=== PATIENT | female | born 1965 | race African-American/Black ===

== ENCOUNTER 2016-10-24 00:58 | Inpatient (IN) | payer OTHER ==
--- NOTE | ~2016-10-24 | PN ---
Unit #: [id number] #: [id number] Patient: DONNA SMITH [id number] [facility] [address] [place] [address] [id number] I MR#: [id number] NAME: DONNA SMITH ROOM: P258 Age: 51 Sex: F Admission Date: 10/24/2016 : 1965 Attending Physician: Tucker Craft M.D. Admitting Physician: Tucker Craft M.D. Primary Care Physician: Primary Care Physician Cesilia YUSUF NOTES DATE 11/01/2016 DISCUSSION Ms. Smith is a 51-year-old female who was seen today and chart was reviewed and case was discussed with the staff. She has been anxious, withdrawn and rather seclusive to herself. Meanwhile, she has been cooperative with treatment recommendations and has been taking the medications and tolerating them fairly well with no reported side effects. MENTAL STATUS EXAMINATION Middle-aged female who was casually dressed with fair personal hygiene and appears to be in no acute distress or discomfort. She was awake and alert with impaired attention and concentration. Her mood was anxious with congruent affect. She denies any suicidal or homicidal ideations and also denies any auditory or visual hallucinations. Her insight and judgement remains slightly impaired. TREATMENT PLAN Will continue on current medications and treatment protocol. Will monitor her response and make further adjustments as needed. Dictated by... Rachel Flynn/patience TD: 11/01/2016 22:29 JOB #: [id number] JOAQUÍN YUSUF NOTES X Tucker Craft MD PROGRESS NOTE
--- NOTE | ~2016-10-24 | PN ---
Unit #: [id number] #: [id number] Patient: DONNA SMITH [id number] [facility] [address] [place] [address] [id number] MR#: [id number] NAME: DONNA SMITH ROOM: P256 Age: 51 Sex: F Admission Date: 10/24/2016 : 1965 Attending Physician: Tucker Craft M.D. Admitting Physician: Tucker Craft M.D. Primary Care Physician: Primary Care Physician Cesilia YUSUF NOTES DATE October 30, 2016 DISCUSSION Ms. Smith is a 51-year-old female, who was seen today and chart was reviewed and the case was discussed with the staff. She reports not feeling much better and complains of persistent anxiety/depression and feelings of hopelessness. Meanwhile, she has been taking the medications and tolerating them fairly well with no reported side effects. MENTAL STATUS EXAMINATION Middle-aged female, who was casually dressed with fair personal hygiene and appears to be in no acute distress or discomfort. She was awake and alert with impaired attention and concentration. Her mood is anxious and depressed with a congruent affect. The patient reports having suicidal ideation and denies homicidal ideations, and also denies any auditory or visual hallucinations. Her insight and judgment remain slightly impaired. TREATMENT PLAN 1. We will continue her on her current medications and treatment protocol, and will monitor her response, and make further adjustments as needed. 2. We will continue to followup. Dictated by... Rachel Flynn/corinna TD: 10/31/2016 09:58 JOB #: [id number] Unit #: [id number] #: [id number] Patient: DONNA SMITH PEAAUSTYN PROGRESS NOTES X Tucker Craft MD PROGRESS NOTE
--- NOTE | ~2016-10-24 | PN ---
Unit #: [id number] #: [id number] Patient: DONNA SMITH [id number] [facility] [address] [place] [address] [id number] MR#: [id number] NAME: DONNA SMITH ROOM: P256 Age: 51 Sex: F Admission Date: 10/24/2016 : 1965 Attending Physician: Tucker Craft M.D. Admitting Physician: Tucker Craft M.D. Primary Care Physician: Primary Care Physician Cesilia YUSUF NOTES DATE OF SERVICE: 10/25/2016 SUBJECTIVE Ms. Smith is a 51-year-old female, who was seen today and chart was reviewed and the case was discussed with the staff. She has been anxious, withdrawn, depressed, and seclusive to herself and reports not feeling good and has been reporting persistent depression and anxiety. Meanwhile, she has been compliant with the treatment recommendations and has been taking the medications and tolerating them fairly well. MENTAL STATUS EXAMINATION Middle-aged female, who was casually dressed with a fair personal hygiene, appears to be in no acute distress or discomfort. She was awake and alert with impaired attention and concentration. Her mood was anxious and depressed with a congruent affect. Her speech was slow and goal directed. She denies any suicidal or homicidal ideations. Her insight and judgment remain slightly impaired. TREATMENT PLAN 1. We will continue her on her current medications and treatment protocol. We will monitor her response to the medications and make further adjustments as needed. 2. We will continue to follow up. Dictated by... Rachel Flynn/seamus TD: 10/26/2016 10:26 JOB #: [id number] JOAQUÍN YUSUF NOTES X Tucker Craft MD PROGRESS NOTE
--- NOTE | ~2016-10-24 | PN ---
Unit #: [id number] #: [id number] Patient: DONNA SMITH [id number] [facility] [address] [place] [address] [id number] I MR#: [id number] NAME: DONNA SMITH ROOM: P258 Age: 51 Sex: F Admission Date: 10/24/2016 : 1965 Attending Physician: Tucker Craft M.D. Admitting Physician: Tucker Craft M.D. Primary Care Physician: Primary Care Physician Cesilia YUSUF NOTES DATE OF SERVICE: 11/02/2016 SUBJECTIVE Ms. Smith is a 51-year-old female who was seen today and chart was reviewed, and case was discussed with the staff. She has been anxious, withdrawn, and rather seclusive to herself. Meanwhile, she has been cooperative with treatment recommendations and has been showing improvement in her mood and functioning. MENTAL STATUS EXAMINATION Middle-aged female who was casually dressed with fair personal hygiene, appears to be in no acute distress or discomfort. She was awake and alert on interaction with intact orientation. Her mood was anxious with a congruent affect. She denies any suicidal or homicidal ideations, and also denies any auditory or visual hallucinations. Her insight and judgment remain slightly impaired. TREATMENT PLAN We will continue on her current medications and treatment protocol. We will monitor her response to medications and make further adjustments as needed. Dictated by... Rachel Flynn/robertl TD: 11/03/2016 03:24 JOB #: [id number] JOAQUÍN PROGRESS NOTES X Tucker Craft MD PROGRESS NOTE
--- NOTE | ~2016-10-24 | HP ---
Unit #: [id number] #: [id number] Patient: ELIN SMITH [id number] [place] [address] [id number] I MR#: [id number] NAME: ELIN SMITH ROOM: P181 Age: 51 Sex: F Admission Date: 10/24/2016 : 1965 Attending Physician: Tucker Craft M.D. Admitting Physician: Tucker Craft M.D. Primary Care Physician: Primary Care Physician No HISTORY AND PHYSICAL HISTORY OF PRESENT ILLNESS Elin is a 51 year old admitted to [facility] because of her continued substance abuse. PAST MEDICAL HISTORY 1. Long history of polysubstance abuse to include cocaine. 2. Obesity. 3. Chronic pain. PAST SURGICAL HISTORY 1. Fractured leg with ORIF 2. Inguinal hernia repair. ALLERGIES No known drug allergies. SOCIAL HISTORY Smokes less than one pack per day. Denies alcohol. Admits to a history of illicit drug use to include cocaine. FAMILY HISTORY Medically noncontributory. REVIEW OF SYSTEMS CONSTITUTIONAL: No fever or chills. HEENT: Denies any sore throat, ear pain or runny nose. CARDIOVASCULAR: Denies chest pain, irregular heart rhythm or palpitations. CHEST: Denies shortness of breath or cough. No hemoptysis. GASTROINTESTINAL: Denies nausea, vomiting, diarrhea or chronic constipation. ENDOCRINE: Denies history of increased thirst or urination. No recent significant weight loss or gain. GENITOURINARY: Denies dysuria, frequency, or hematuria. SKIN: Denies any rashes. HEMATOLOGIC: Denies history of increased bleeding or bruising. MUSCULOSKELETAL: Denies any hot, swollen joints. No generalized muscle pain. NEUROLOGIC: Denies problems with vision or speech. No frequent, severe headaches. No numbness, tingling or weakness in any extremities. Denies loss of bladder or bowel control. CURRENT MEDICATIONS Unit #: [id number] #: [id number] Patient: ELIN SMITH No orders received at the time of this dictation. PHYSICAL EXAMINATION GENERAL: Alert, well-nourished, in no apparent distress. VITAL SIGNS: Blood pressure 120/70, heart rate 80, respirations 16, temperature 98.6. SKIN: Warm and dry without rash or lesion. HEENT: Normocephalic. TMs not viewed. Oral and nasal passages clear. Conjunctivae clear. Pupils equal, round and reactive to light and accommodation. Extraocular movements intact. NECK: Supple without lymphadenopathy or thyromegaly. HEART: Rate and rhythm is regular with a 2/6 systolic murmur. LUNGS: Clear. ABDOMEN: Soft, nontender. : Not done. EXTREMITIES: No evidence of cyanosis, clubbing or edema. Moves all extremities without focal deficit. NEUROLOGICAL: Grossly within normal limits. Cranial Nerves: II: Visual irizarry are intact. III, IV AND : Extraocular movements are intact. Pupils are equal, round and reactive to light. V: Facial sensation is grossly normal. VII: Facial movements and expression are normal. VIII: Auditory acuity grossly intact. IX, X: Uvula is midline. Phonation is normal. XI: Patient shrugs shoulders and turns head normally. XII: Tongue protrudes in the midline. Sensory and Motor Function: Sensory and motor sensation is grossly normal. Motor: moves all extremities well. Coordination: Gait is normal. Deep Tendon Reflexes: Intact. IMPRESSION Psychiatric admission RECOMMENDATIONS PSYCHIATRIC: Per psychiatrist. MEDICAL: I see no contraindications to participating in facility's activities. MEDICAL PROGNOSIS Good. MEDICAL CONDITION Stable. Dictated by... Chris BarrazaANaya-Tani. for Rachel Moore/florencia TD: 10/25/2016 03:05 JOB #: [id number] Unit #: [id number] #: [id number] Patient: ELIN SMITH HISTORY AND PHYSICAL X Trang Romero X HISTORY AND PHYSICAL
--- NOTE | ~2016-10-24 | PN ---
Unit #: [id number] #: [id number] Patient: DONNA SMITH [id number] [facility] [address] [place] [address] [id number] MR#: [id number] NAME: DONNA SMITH ROOM: P256 Age: 51 Sex: F Admission Date: 10/24/2016 : 1965 Attending Physician: Tucker Crfat M.D. Admitting Physician: Tucker Craft M.D. Primary Care Physician: Primary Care Physician Cesilia YUSUF NOTES DATE OF SERVICE: 10/28/2016 SUBJECTIVE Ms. Smith is a 51-year-old female, who was seen today and chart was reviewed and the case was discussed with the staff. She has been anxious, withdrawn, depressed, and rather seclusive to herself and reports not feeling much better and does not feel that her medications are effectively controlling her depressive symptoms. Meanwhile, she has been taking the medications and tolerating them fairly well with no reported side effects. MENTAL STATUS EXAMINATION Middle-aged female, who was casually dressed with fair personal hygiene, appears to be in no acute distress or discomfort. She was awake and alert with intact orientation. Her mood anxious with a congruent affect. She denies any suicidal or homicidal ideation. Her insight and judgment remain slightly impaired. TREATMENT PLAN 1. We will continue her on her current medications and treatment protocol and we will monitor her response to the medications and make further adjustments as needed. 2. We will continue to follow up. Dictated by... Rachel Flynn/seamus TD: 10/28/2016 13:13 JOB #: [id number] JOAQUÍN YUSUF NOTES X Tucker Craft MD PROGRESS NOTE
--- NOTE | ~2016-10-24 | DS ---
Unit #: [id number] #: [id number] Patient: [facility]ITH [id number] [facility] [place] [address] [id number] MR#: [id number] NAME: DONNA SMITH ROOM: P258 Age: 51 Sex: F Admission Date: 10/24/2016 : 1965 Discharge Date: 11/03/2016 Attending Physician: Tucker Craft M.D. Primary Care Physician: Primary Care Physician No DISCHARGE SUMMARY IDENTIFYING DATA Ms. Smith is a 51-year-old female, who is a resident of [place], [place], and was self-referred to the hospital. DISCHARGE DIAGNOSES Psychiatric: Major depressive disorder, recurrent, moderate, without psychotic features. Medical: None. Stressors: Moderate psychosocial stressors. HISTORY OF PRESENT ILLNESS Please see initial psychiatric evaluation for details. PAST PSYCHIATRIC HISTORY Please see initial psychiatric evaluation for details. PAST MEDICAL HISTORY Please see initial psychiatric evaluation for details. HOSPITAL COURSE The patient was admitted to the adult psychiatric unit at [facility] and was oriented to the hospital environment. Routine p.r.n. medications were initiated, and she was started back on her home medications and medications were adjusted. The patient had a rather complicated course of illness with persistent depression and anxiety and was not showing therapeutic response to most of the medications and as such, medications were adjusted quite regularly, and once she got on a combination of Seroquel and Neurontin, she was seen to be doing much better and was calm and cooperative, sleeping and eating better, and was showing improvement in her anxiety and was willing to continue treatment on an outpatient basis, and as such, it was decided that she will be discharged home and will continue treatment on an outpatient basis. DISCHARGE MEDICATIONS Seroquel 100 mg at bedtime for depression, Celexa 40 mg in the morning for depression, and Neurontin 300 mg t.i.d. for anxiety. DISCHARGE CONDITION Stable. PROGNOSIS Fair. Unit #: [id number] #: [id number] Patient: DONNA SMITH Dictated by... Tucker Craft M.D. IAA/modl TD: 11/03/2016 20:37 JOB #: [id number] DISCHARGE SUMMARY X Tucker Craft MD DISCHARGE SUMMARY
--- NOTE | ~2016-10-24 | PA ---
Unit #: [id number] #: [id number] [facility]: [facility] [id number] [facility] [place] [address] [id number] I MR#: [id number] NAME: DONNA SMITH ROOM: P181 Age: 51 Sex: F Admission Date: 10/24/2016 : 1965 Date of Assessment: 10/24/2016 Attending Physician: Tucker Craft M.D. Admitting Physician: Tucker Craft M.D. Primary Care Physician: Primary Care Physician No PSYCHIATRIC ASSESSMENT DATE OF SERVICE 10/24/2016. IDENTIFYING DATA Ms. Smith is a 51-year-old female, who is a resident of [place], [place] and was self-referred to the hospital on a voluntary basis. CHIEF COMPLAINT "I have been really depressed and I'm not eating." HISTORY OF PRESENT ILLNESS This is a 51-year-old female, who was self-referred to the hospital. Upon presentation, reports increasing depression and that she has not been eating and "I just feel like I'm going to have a nervous breakdown, stuff going on at work. I have been off my medicine for a while and I want to kill myself. I'm hearing voices. It has gotten really bad the last month." The patient reports auditory hallucinations, stating "the last few days, it has gotten worse." The patient reports voices are command in nature and has been telling her to hurt herself. The patient reports that she was working at [employer] and stated "I took off 2 weeks for medical reasons to get my feet done." She reports that she has not been able to work since then and has been having increasing depression, anxiety with feelings of hopelessness and helplessness, and suicidal ideations and command auditory hallucinations. SUBSTANCE ABUSE HISTORY The patient denies any alcohol or drug abuse. PAST PSYCHIATRIC HISTORY The patient has had history of inpatient psychiatric hospitalization at [facility] and has been diagnosed and treated for mood disorder, but apparently has been off her medications and has been decompensating. PAST MEDICAL HISTORY No acute or chronic medical illnesses. PERSONAL AND SOCIAL HISTORY A 51-year-old female, who reports that she is currently employed and lives at home with her boyfriend and has fairly decent social support system. Unit #: [id number] #: [id number] Patient: DONNA SMITH MENTAL STATUS EXAMINATION Middle-aged female who was casually dressed with fair personal hygiene, appears to be in no acute distress or discomfort. She was awake and alert on interaction with intact orientation to time, place, and person. Her mood was anxious and depressed with a congruent affect. Her speech was slow and goal directed. She reports having suicidal ideations and auditory hallucinations. Her insight and judgment remain significantly impaired. DIAGNOSTIC IMPRESSION Psychiatric: Major depressive disorder, recurrent, moderate, with psychosis. Medical: None. Stressors: Moderate psychosocial stressors. TREATMENT PLAN 1. The patient has presented with history of substance abuse and mood disorder, and has been decompensating and will need inpatient hospitalization for safety and stabilization. We will start her back on her home medications. We will adjust the medications and monitor response. 2. Supportive therapy was provided to the patient. 3. Safe, structured, and nourishing environment will be reported. ESTIMATED LENGTH OF STAY 5 to 7 days. ABILITY TO HELP SELF Limited. WILLINGNESS TO HELP SELF The patient appears to be willing to help self. STRENGTHS 1. Communicative. 2. Cooperative. PROBLEMS 1. Chronic dysphoric symptoms. 2. Chronic chemical dependency. 3. Poor social support system. DISCHARGE CRITERIA This will be contingent upon the patient's ability to show resolution of her depression and psychosis and her ability to stay safe to herself, particularly after discharge from the hospital. Dictated by... Tucker Craft M.D. MARCO A/seamus TD: 10/24/2016 06:40 JOB #: [id number] Unit #: [id number] #: [id number] Patient: DONNA SMITH PSYCHIATRIC ASSESSMENT X Tucker Craft MD PSYCHIATRIC ASSESSMENT
--- NOTE | ~2016-10-24 | PN ---
Unit #: [id number] #: [id number] Patient: DONNA SMITH [id number] [facility] [address] [place] [address] [id number] MR#: [id number] NAME: DONNA SMITH ROOM: P256 Age: 51 Sex: F Admission Date: 10/24/2016 : 1965 Attending Physician: Tucker Craft M.D. Admitting Physician: Tucker Craft M.D. Primary Care Physician: Primary Care Physician Cesilia YUSUF NOTES DATE OF SERVICE: 10/26/2016 SUBJECTIVE Ms. Smith is a 51-year-old female who was seen today and chart was reviewed, and case was discussed with the staff. She has been anxious, withdrawn, and rather seclusive to herself. Meanwhile, she has been cooperative with treatment recommendations and has been taking the medications and tolerating them fairly well. MENTAL STATUS EXAMINATION Middle-aged female who was casually dressed with a fair personal hygiene, appears to be in no acute distress or discomfort. She was awake and alert with impaired attention and concentration. Her mood was anxious with a congruent affect. She denies any suicidal or homicidal ideations, and also denies any auditory or visual hallucinations. Her insight and judgment remain slightly impaired. TREATMENT PLAN 1. We will continue her on current medications and treatment protocol. We will monitor her response and make further adjustments as needed. 2. We will continue to follow up. Dictated by... Rachel Flynn/seamus TD: 10/27/2016 01:48 JOB #: [id number] JOAQUÍN PROGRESS NOTES X Tucker Craft MD PROGRESS NOTE
--- NOTE | ~2016-10-24 | PN ---
Unit #: [id number] #: [id number] Patient: DONNA SMITH [id number] [facility] [address] [place] [address] [id number] MR#: [id number] NAME: DONNA SMITH ROOM: P256 Age: 51 Sex: F Admission Date: 10/24/2016 : 1965 Attending Physician: Tucker Craft M.D. Admitting Physician: Tucker Craft M.D. Primary Care Physician: Primary Care Physician Cesilia YUSUF NOTES DATE OF SERVICE: 10/27/2016 SUBJECTIVE Ms. Smith is a 51-year-old female, who was seen today and chart was reviewed and the case was discussed with the staff. She has been anxious, withdrawn, and rather seclusive to herself and has been reporting persistent depressive symptoms with feelings of hopeless and helplessness. Meanwhile, she has been taking the medications and tolerating them fairly well with no reported side effects. MENTAL STATUS EXAMINATION Middle-aged female, who was casually dressed with fair personal hygiene, appears to be in no acute distress or discomfort. She was awake and alert with intact orientation. Her mood anxious and depressed with a congruent affect. She reports having suicidal ideation, but denies any homicidal ideations. Her insight and judgment remain slightly impaired. TREATMENT PLAN 1. We will continue her on her current medications and treatment protocol. We will monitor her response to the medications and make further adjustments as needed. 2. We will continue to follow up. Dictated by... Rachel Flynn/seamus TD: 10/27/2016 16:15 JOB #: [id number] JOAQUÍN YUSUF NOTES X Tucker Craft MD PROGRESS NOTE
--- NOTE | ~2016-10-24 | PN ---
Unit #: [id number] #: [id number] Patient: DONNA SMITH [id number] [facility] [address] [place] [address] [id number] MR#: [id number] NAME: DONNA SMITH ROOM: P256 Age: 51 Sex: F Admission Date: 10/24/2016 : 1965 Attending Physician: Tucker Craft M.D. Admitting Physician: Tucker Craft M.D. Primary Care Physician: Primary Care Physician Cesilia YUSUF NOTES DATE OF SERVICE: 10/29/2016 SUBJECTIVE Ms. Smith is a 51-year-old female who was seen today and chart was reviewed and case was discussed with the staff. She remains anxious, withdrawn, depressed, and seclusive to herself and sleeps on her bed most of the time, but hardly gets up and does anything needed. She appeared to be participating in treatment-related activities. Meanwhile, she has been taking the medications which were adjusted yesterday after she complained lack of response from medications. MENTAL STATUS EXAMINATION Middle-aged female who was casually dressed with fair personal hygiene, appears to be in no acute distress or discomfort. She was awake and alert on interaction with intact orientation. Her mood was anxious with a congruent affect. She reports having suicidal ideations, but denies any homicidal ideations. Her insight and judgment remain slightly impaired. TREATMENT PLAN 1. We will continue her on her current medications and treatment protocol. We will monitor her response and make further adjustments as needed. 2. We will continue to follow up. Dictated by... Rachel Flynn/seamus TD: 10/30/2016 13:40 JOB #: [id number] Unit #: [id number] #: [id number] Patient: DONNA SMITH [facility] PROGRESS NOTES X Tucker Craft MD PROGRESS NOTE
--- NOTE | ~2016-10-24 | PN ---
Unit #: [id number] #: [id number] Patient: DONNA SMITH [id number] [facility] [address] [place] [address] [id number] MR#: [id number] NAME: DONNA SMITH ROOM: P258 Age: 51 Sex: F Admission Date: 10/24/2016 : 1965 Attending Physician: Tucker Craft M.D. Admitting Physician: Tucker Craft M.D. Primary Care Physician: Primary Care Physician Cesilia YUSUF NOTES DATE OF SERVICE: 10/31/2016 SUBJECTIVE Ms. Smith is a 51-year-old female, who was seen today and chart was reviewed and the case was discussed with the staff. She reports persistent depression and anxiety, irritability, restlessness, mood swings, impulsivity, poor sleep at night, and debilitating anxiety. She reports she has been taking her medications, she does not feel the medications are effectively controlling her symptoms. MENTAL STATUS EXAMINATION Middle-aged female, who was casually dressed with a fair personal hygiene, appears to be in no acute distress or discomfort. She was awake and alert on interaction with intact orientation. Her mood was anxious and depressed with a congruent affect. Her speech was slow and goal directed. She denies any current suicidal or homicidal ideations. Her insight and judgment remain significantly impaired. TREATMENT PLAN 1. We will continue her on her current medications and treatment protocol and we will adjust the medications. We will add Neurontin and Seroquel to help alleviate her symptoms. 2. We will continue to follow up. Dictated by... Rachel Flynn/seamus TD: 11/01/2016 15:33 JOB #: [id number] JOAQUÍN YUSUF NOTES X Tucker Craft MD PROGRESS NOTE
[2016-10-24 09:44] LABS: BASOPHIL# 0.1 X10e3 (0-0.3); BASOPHIL% 0.9 % (0-2.5); EOSINOPHIL# 0.2 X10e3 (0-0.7); EOSINOPHIL% 3.6 % (0.0-7.0); HEMOGLOBIN 10.8 gm/dL (12.0-16.0); LYMPHOCYTE# 2.3 X10e3 (1.0-3.5); LYMPHOCYTE% 33.9 % (17.0-45.0); MEAN CELL VOLUME 81.5 FL (83-96); MEAN CORPUSCULAR HEMOGLOBIN 25.8 PG (28-34); MEAN CORPUSCULAR HGB CONC 31.7 g/dL (30-36); MEAN PLATELET VOLUME 8.9 FL (6.5-11.5); MONOCYTE# 0.6 X10e3 (0-1.0); MONOCYTE% 8.3 % (3.0-12.0); NEUTROPHIL# 3.7 X10e3 (1.5-7.1); NEUTROPHIL% 53.3 % (40-75); PLATELET COUNT 241 X10e3 (140-420); RED BLOOD COUNT 4.17 X10e (3.90-5.30); RED CELL DISTRIBUTION WIDTH 16.5 % (11.0-15.5); WHITE BLOOD COUNT 6.9 X10e3 (4.0-10.5)
[2016-10-24 09:45] LABS: DIFF IND NO
[2016-10-24 09:53] LABS: THYROID STIMULATING HORMONE 0.93 uIU/ml (0.34-5.60)
[2016-10-24 09:54] LABS: URINE APPEARANCE CLOUDY; URINE BLOOD NEG (NEG); URINE COLOR YELLOW; URINE GLUCOSE NORM (NORM); URINE KETONE NEG (NEG); URINE LEUKOCYTE ESTERASE NEG (NEG); URINE NITRATE NEG (NEG); URINE PROTEIN 1+ (NEG); URINE SPECIFIC GRAVITY 1.025 (1.003-1.035); URINE UROBILINOGEN NORM (NORM)
[2016-10-24 10:00] LABS: FREE THYROXIN (T4) 0.87 ng/dL (0.58-1.64)
[2016-10-24 10:01] LABS: URINE BILIRUBIN NEG (NEG)
[2016-10-24 10:07] LABS: ALBUMIN SERUM 3.9 g/dL (3.5-5.0); ALKALINE PHOSPHATASE 61 U/L (32-92); ALT (SGPT) 12 U/L (10-40); AST (SGOT) 21 U/L (10-42); BILIRUBIN,TOTAL 0.5 mg/dL (0.2-2.0); BLOOD UREA NITROGEN 20 mg/dL (9-23); BUN/CREATININE RATIO 18.18; CALCIUM SERUM 9.2 mg/dL (8.4-10.2); CARBON DIOXIDE 28 mmol/L (22-31); CHLORIDE 105 mmol/L (100-111); CREATININE SERUM 1.1 mg/dL (0.6-1.4); GLOM FILT RATE Estimated ABOVE60 mL/min (>60); GLUCOSE FASTING 94 mg/dL (70-110); PROTEIN TOTAL SERUM 7.5 g/dL (6.0-8.3); SODIUM 141 mmol/L (135-145)
[2016-10-24 10:19] LABS: URBCS1 AUWI 0-2 /[HPF] (0-2); URINE BACTERIA AUWI NEG (NEGATIVE); URINE CRYSTALS CALCIUM OXALATE /[HPF]; URINE SQUAMOUS EPITHELIAL CELL OCCAS /[HPF]; UWBCS1 AUWI 0-2 (0-5)
[2016-10-24 11:13] LABS: AMPHETAMINE NEG (NEG); BARBITURATES NEG (NEG); BENZODIAZEPINES NEG (NEG); COCAINE POS (NEG); MARIJUANA POS (NEG); OPIATES NEG (NEG); TRICYCLIC ANTIDEPRESSANTS NEG (NEG); U METHADONE NEG (NEG)
== END 2016-11-03 13:20 | disposition home or self-care (01) | DRG 885 ==
LOC: P1E 00:58 → P2L 10-25 17:18 → POF 10-27 15:16 → P2L 10-27 15:27
PROVIDERS: Psychiatry & Neurology Psychiatry
DX: F33.3 Major depressive disorder, recurrent, severe with psychotic symptoms (principal); E66.9 Obesity, unspecified; F17.210 Nicotine dependence, cigarettes, uncomplicated
CPT/HCPCS: 80053; 80307; 81003; 84439; 84443; 85025

== ENCOUNTER 2017-04-23 14:00 | Inpatient (IN) | payer OTHER ==
[~2017-04-23] VITALS: Ht 157.5 cm; Wt 54.4 kg
--- NOTE | ~2017-04-23 | PN ---
Unit #: [id number] #: [id number] Patient: DONNA MANN [id number] [facility] [address] [place] [address] [id number] MR#: [id number] NAME: DONNA MANN ROOM: P214 Age: 52 Sex: F Admission Date: 04/23/2017 : 1965 Attending Physician: Tucker Craft M.D. Admitting Physician: Tucker Craft M.D. Primary Care Physician: Primary Care Physician Cesilia YANES PROGRESS NOTES DATE 04/26/2017 DISCUSSION Ms. Mann is a 52-year-old female who was seen today and chart was reviewed and case was discussed with the staff. She has been anxious, withdrawn and rather seclusive to herself. Meanwhile, she has been cooperative with treatment recommendations and has been taking medications and tolerating them fairly well. MENTAL STATUS EXAMINATION Middle-aged female who was casually dressed with fair personal hygiene and appears to be in slight distress or discomfort. She was awake and alert with intact orientation. Her mood was anxious and depressed with congruent affect. She reports having auditory hallucinations but denies any suicidal ideation. Her insight and judgement remains slightly impaired. TREATMENT PLAN 1. Will continue on current medications and treatment protocol. Will monitor her response to the medications and make further adjustments as needed. 2. Will continue to follow up. Dictated by... Tucker Craft M.D. IAA/patience TD: 04/26/2017 15:24 JOB #: [id number] Unit #: [id number] #: [id number] Patient: DONNA MANN PROGRESS NOTES Page 1 of 1 X Tucker Craft MD PROGRESS NOTE
--- NOTE | ~2017-04-23 | PN ---
Unit #: [id number] #: [id number] Patient: DONNA MANN [id number] [facility] [address] [place] [address] [id number] I MR#: [id number] NAME: DONNA MANN ROOM: P214 Age: 52 Sex: F Admission Date: 04/23/2017 : 1965 Attending Physician: Tucker Craft M.D. Admitting Physician: Tucker Craft M.D. Primary Care Physician: Primary Care Physician Cesilia YANES PROGRESS NOTES DATE 04/25/2017 DISCUSSION Ms. Mann is a 52-year-old female who was seen today and chart was reviewed and case was discussed with the staff. She has been anxious, withdrawn and rather seclusive to herself. Meanwhile, she has been cooperative with treatment recommendations and has been taking medications and tolerating them fairly well with no reported side effects. MENTAL STATUS EXAMINATION Middle-aged female who was casually dressed with fair personal hygiene and appears to be in no acute distress or discomfort. She was awake and alert with impaired attention and orientation. Her mood was anxious with congruent affect. She denies any suicidal or homicidal ideations. Her insight and judgement remains slightly impaired. TREATMENT PLAN 1. Will continue on current treatment protocol. Will monitor her response to the medications and make further adjustments as needed. 2. Will continue to follow up. Dictated by... Tucker Craft M.D. IAA/patience TD: 04/25/2017 18:27 JOB #: [id number] Unit #: [id number] #: [id number] Patient: DONNA MANN RLAUSTYN PROGRESS NOTES Page 1 of 1 X Tucker Craft MD PROGRESS NOTE
--- NOTE | ~2017-04-23 | PN ---
Unit #: [id number] #: [id number] Patient: DONNA MANN [id number] [facility] [address] [place] [address] [id number] I MR#: [id number] NAME: DONNA MANN ROOM: P214 Age: 52 Sex: F Admission Date: 04/23/2017 : 1965 Attending Physician: Tucker Craft M.D. Admitting Physician: Tucker Craft M.D. Primary Care Physician: Primary Care Physician Cesilia YUSUF NOTES DATE 04/27/2017 DISCUSSION Ms. Mann is a 52-year-old female who was seen today and chart was reviewed and case was discussed with the staff. She has been anxious, withdrawn and seclusive to herself. Meanwhile, she has been cooperative with treatment recommendations and has been taking medications and tolerating them fairly well with no reported side effects. MENTAL STATUS EXAMINATION Middle-aged female who was casually dressed with fair personal hygiene and appears to be in no acute distress or discomfort. She was awake and alert with impaired attention and concentration. Her mood was anxious with congruent affect. She reports having auditory hallucinations and suicidal ideations. Her insight and judgement remains significantly impaired. TREATMENT PLAN 1. Will continue current treatment protocol though will increase her Seroquel to 200 mg at bedtime to address auditory hallucinations. 2. Will continue to follow up. Dictated by... Tucker Craft M.D. IAA/patiecne TD: 04/27/2017 21:59 JOB #: [id number] Unit #: [id number] #: [id number] Patient: DONNA MANN RLAUSTYN PROGRESS NOTES Page 1 of 1 X Tucker Craft MD PROGRESS NOTE
--- NOTE | ~2017-04-23 | PN ---
Unit #: [id number] #: [id number] Patient: DONNA SMITH [id number] [facility] [address] [place] [address] [id number] I MR#: [id number] NAME: DONNA SMITH ROOM: P214 Age: 52 Sex: F Admission Date: 04/23/2017 : 1965 Attending Physician: Tucker Craft M.D. Admitting Physician: Tucker Craft M.D. Primary Care Physician: Primary Care Physician Cesilia YANES PROGRESS NOTES DATE OF SERVICE: 04/28/2017 SUBJECTIVE Ms. Smith is a 52-year-old female, who was seen today and chart was reviewed, and case was discussed with the staff. She has been anxious, withdrawn, and rather seclusive to herself. Meanwhile, she has been cooperative with treatment recommendation and has been taking medications and tolerating them fairly well with no reported side effects. MENTAL STATUS EXAMINATION Middle-aged female, who was casually dressed with fair personal hygiene and appears to be in no acute distress or discomfort. She was awake and alert on interaction with intact orientation. Her mood was anxious and depressed with a congruent affect. Her speech is slow and restricted in content. She denies any suicidal or homicidal ideations. Her insight and judgment remain slightly impaired. TREATMENT PLAN 1. We will continue on her current medications and treatment protocol. We will monitor her response to medications and make further adjustments as needed. 2. We will continue to follow up. Dictated by... Rachel Flynn/seamus TD: 05/01/2017 01:25 JOB #: [id number] Unit #: [id number] #: [id number] Patient: DONNA SMITH PEAAUSTYN PROGRESS NOTES Page 1 of 1 X Tucker Craft MD PROGRESS NOTE
--- NOTE | ~2017-04-23 | PN ---
Unit #: [id number] #: [id number] Patient: DONNA SMITH [id number] [facility] [address] [place] [address] [id number] I MR#: [id number] NAME: DONNA SMITH ROOM: P214 Age: 52 Sex: F Admission Date: 04/23/2017 : 1965 Attending Physician: Tucker Craft M.D. Admitting Physician: Tucker Craft M.D. Primary Care Physician: Primary Care Physician Cesilia YUSUF NOTES DATE 04/24/2017 DISCUSSION Ms. Smith is a 52-year-old female who was seen today and chart was reviewed and case was discussed with the staff. She has been anxious, withdrawn and rather seclusive to herself. Meanwhile, she has been cooperative with treatment recommendations as she has been taking the medications and tolerating them fairly well with no reported side effects. MENTAL STATUS EXAMINATION Middle-aged female who was casually dressed with fair personal hygiene, appears to be in no acute distress or discomfort. She was awake and alert with impaired attention and concentration. Her mood was anxious with congruent affect. She reports having suicidal ideation but denies any homicidal ideations. Her insight and judgement remains slightly impaired. TREATMENT PLAN 1. We will continue her on her current treatment protocol. We will monitor her response and make further adjustments as needed. 2. We will continue to follow up. Dictated by... Rachel Flynn/florencia TD: 04/25/2017 02:54 JOB #: [id number] Unit #: [id number] #: [id number] Patient: DONNA SMITH JOAQUÍN PROGRESS NOTES Page 1 of 1 X Tucker Craft MD PROGRESS NOTE
--- NOTE | ~2017-04-23 | PN ---
Unit #: [id number] #: [id number] Patient: DONNA SMITH [id number] [facility] [address] [place] [address] [id number] I MR#: [id number] NAME: DONNA SMITH ROOM: P214 Age: 52 Sex: F Admission Date: 04/23/2017 : 1965 Attending Physician: Tucker Craft M.D. Admitting Physician: Tucker Craft M.D. Primary Care Physician: Primary Care Physician Cesilia YUSUF NOTES DATE OF SERVICE 04/29/2017 DISCUSSION Ms. Smith is a 52-year-old female who was seen today and chart was reviewed and case was discussed with the staff. She has been anxious, withdrawn and rather seclusive to herself. Meanwhile, she has been cooperative with treatment recommendations. She has been taking medications and tolerating them fairly well with no reported side effects. MENTAL STATUS EXAMINATION Middle-aged female who was casually dressed with fair personal hygiene, appears to be in no acute distress or discomfort. She was awake and alert on interaction with impaired attention and concentration. Her mood was anxious with congruent affect. Her speech was slow and tangential. Her thought processes were disorganized with some looseness of associations and auditory hallucinations. Her insight and judgement remains significantly impaired. TREATMENT PLAN 1. We will continue her on her current medications and treatment protocol. We will monitor her response and make further adjustments as needed. 2. We will continue to follow up. Dictated by... Rachel Flynn/florencia TD: 05/01/2017 03:18 JOB #: [id number] Unit #: [id number] #: [id number] Patient: DONNA SMITH JOAQUÍN PROGRESS NOTES Page 1 of 1 X Tucker Craft MD NOTE
--- NOTE | ~2017-04-23 | DS ---
Unit #: [id number] #: [id number] Patient: DONNA SMITH [id number] [facility] [address] [place] [address] [id number] I MR#: [id number] NAME: DONNA SMITH ROOM: P214 Age: 52 Sex: F Admission Date: 04/23/2017 : 1965 Discharge Date: 04/30/2017 Attending Physician: Tucker Craft M.D. Primary Care Physician: Primary Care Physician No DISCHARGE SUMMARY IDENTIFICATION DATA Ms. Smith is a 52-year-old single female who is a resident of [place], [place], and is known to us from previous encounter and was self-referred to the hospital on voluntary basis. DISCHARGE DIAGNOSES PSYCHIATRIC: Major depressive disorder, recurrent, moderate with psychosis. Alcohol dependence, moderate, in acute withdrawals. Cannabis abuse, moderate. Cocaine abuse, moderate. MEDICAL: None. STRESSORS: Mild psychosocial stressors. HISTORY OF PRESENT ILLNESS Same as in initial psychiatric evaluation. PAST PSYCHIATRIC HISTORY Same as in initial psychiatric evaluation. PAST MEDICAL HISTORY Same as in initial psychiatric evaluation. HOSPITAL COURSE The patient was admitted to the adult psychiatric and [facility] at [facility] and was oriented to the hospital environment. Routine p.r.n. medications were initiated, and she was started back on her home medications, and medications were adjusted and detox protocol was maintained. However, she was complaining of persistent depression and psychosis, particularly auditory hallucinations. Seroquel was initiated and was gradually titrated from 100 to 200 and then to 300 mg with good tolerability and therapeutic response followed by which, it was decided that she will be discharged home. We will continue treatment on outpatient basis. DISCHARGE MEDICATIONS 1. Seroquel 300 mg at bedtime for psychosis. 2. Celexa 40 mg a day for depression. CONDITION AT DISCHARGE Stable. PROGNOSIS Fair. Unit #: [id number] #: [id number] Patient: DONNA SMITH Dictated by... Tucker Craft M.D. IAA/bzg TD: 05/03/2017 09:19 JOB #: [id number] DISCHARGE SUMMARY Page 1 of 1 X Tucker Craft MD DISCHARGE SUMMARY
--- NOTE | ~2017-04-23 | HP ---
Unit #: [id number] #: [id number] Patient: ELIN SMITH [id number] [place] [address] [id number] I MR#: [id number] NAME: ELIN SMITH ROOM: P214 Age: 52 Sex: F Admission Date: 04/23/2017 : 1965 Attending Physician: Tucker Craft M.D. Admitting Physician: Tucker Craft M.D. Primary Care Physician: Primary Care Physician No HISTORY AND PHYSICAL HISTORY OF PRESENT ILLNESS Elin is a 52-year-old female admitted to [address] [place] [address] because of her polysubstance abuse which includes cocaine. PAST MEDICAL HISTORY 1. Long history of illicit substance abuse to include cocaine. 2. Obesity. 3. Chronic pain. PAST SURGICAL HISTORY 1. Fractured leg with ORIF. 2. Inguinal hernia repair. ALLERGIES No known drug allergies. SOCIAL HISTORY He smokes less than 1 pack per day. Denies alcohol. Admits to a history of illicit drug use. FAMILY HISTORY Medically noncontributory. REVIEW OF SYSTEMS CONSTITUTIONAL: No fever or chills. HEENT: Denies any sore throat, ear pain or runny nose. CARDIOVASCULAR: Denies chest pain, irregular heart rhythm or palpitations. CHEST: Denies shortness of breath or cough. No hemoptysis. GASTROINTESTINAL: Denies nausea, vomiting, diarrhea or chronic constipation. ENDOCRINE: Denies history of increased thirst or urination. No recent significant weight loss or gain. GENITOURINARY: Denies dysuria, frequency, or hematuria. SKIN: Denies any rashes. HEMATOLOGIC: Denies history of increased bleeding or bruising. MUSCULOSKELETAL: Denies any hot, swollen joints. No generalized muscle pain. NEUROLOGIC: Denies problems with vision or speech. No frequent, severe headaches. No numbness, tingling or weakness in any extremities. Denies loss of bladder or bowel control. CURRENT MEDICATIONS Detox protocol. Unit #: [id number] #: [id number] Patient: ELIN SMITH PHYSICAL EXAMINATION GENERAL: Alert, well-nourished, in no apparent distress. VITAL SIGNS: Blood pressure 100/50, heart rate 80, respirations 16, temperature 98.6. WEIGHT: 125. HEIGHT: 5 feet 2 inches. SKIN: Warm and dry without rash or lesion. HEENT: Normocephalic. TMs not viewed. Oral and nasal passages clear. Conjunctivae clear. PERRLA. EOMs intact. NECK: Supple without lymphadenopathy or thyromegaly. HEART: Regular rate and rhythm without murmur. LUNGS: Clear. ABDOMEN: Soft, nontender. : Not done. EXTREMITIES: No evidence of cyanosis, clubbing or edema. Moves all without focal deficit. NEUROLOGICAL: Grossly within normal limits. Cranial Nerves: II: Visual irizarry are intact. III, IV AND : Extraocular movements are intact. Pupils are equal, round and reactive to light. V: Facial sensation is grossly normal. VII: Facial movements and expression are normal. VIII: Auditory acuity grossly intact. IX, X: Uvula is midline. Phonation is normal. XI: Patient shrugs shoulders and turns head normally. XII: Tongue protrudes in the midline. Sensory and Motor Function: Sensory and motor sensation is grossly normal. Motor: moves all extremities well. Coordination: Gait is normal. Deep Tendon Reflexes: Intact. IMPRESSION Psychiatric admission. RECOMMENDATIONS PSYCHIATRIC: Per psychiatrist. MEDICAL: See no contraindication to participate in facility's activities. MEDICAL PROGNOSIS Good. MEDICAL CONDITION Stable. Dictated by... Chris BarrazaANaya-Tani. for Rachel Moore/patience TD: 04/24/2017 18:03 JOB #: [id number] Unit #: [id number] #: [id number] Patient: ELIN SMITH HISTORY AND PHYSICAL Page 1 of 1 X Trang Romero HISTORY AND PHYSICAL
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
[2017-04-24 12:39] LABS: BASOPHIL# 0.1 X10e3 (0-0.3); EOSINOPHIL# 0.2 X10e3 (0-0.7); EOSINOPHIL% 3.8 % (0.0-7.0); HEMATOCRIT 34.6 % (35.0-45.0); HEMOGLOBIN 11.4 gm/dL (12.0-16.0); LYMPHOCYTE# 1.2 X10e3 (1.0-3.5); LYMPHOCYTE% 21.4 % (17.0-45.0); MEAN CORPUSCULAR HEMOGLOBIN 28.6 PG (28-34); MEAN CORPUSCULAR HGB CONC 32.9 g/dL (30-36); MEAN PLATELET VOLUME 8.9 FL (6.5-11.5); MONOCYTE# 0.4 X10e3 (0-1.0); NEUTROPHIL% 67.8 % (40-75); PLATELET COUNT 225 X10e3 (140-420); RED BLOOD COUNT 3.98 X10e (3.90-5.30); RED CELL DISTRIBUTION WIDTH 15.6 % (11.0-15.5); WHITE BLOOD COUNT 5.8 X10e3 (4.0-10.5)
[2017-04-24 12:47] LABS: DIFF IND NO
[2017-04-24 12:59] LABS: ALBUMIN SERUM 3.2 g/dL (3.5-5.0); BILIRUBIN,TOTAL 0.1 mg/dL (0.2-2.0); BUN/CREATININE RATIO 18.88; CALCIUM SERUM 8.7 mg/dL (8.4-10.2); CREATININE SERUM 0.9 mg/dL (0.6-1.4); GLOM FILT RATE Estimated 85.3 mL/min (>60); POTASSIUM 4.2 mmol/L (3.5-5.1); PROTEIN TOTAL SERUM 6.5 g/dL (6.0-8.3)
[2017-04-24 16:44] LABS: URINE APPEARANCE CLEAR; URINE BILIRUBIN NEG (NEG); URINE BLOOD NEG (NEG); URINE COLOR DK YELLOW; URINE GLUCOSE NEG (NEG); URINE KETONE NEG (NEG); URINE LEUKOCYTE ESTERASE NEG (NEG); URINE NITRATE NEG (NEG); URINE PH 5.5 (5-8); URINE PROTEIN NEG (NEG); URINE SPECIFIC GRAVITY 1.022 (1.003-1.035)
[2017-04-24 16:55] LABS: AMPHETAMINE NEG (NEG); BARBITURATES NEG (NEG); BENZODIAZEPINES NEG (NEG); COCAINE POS (NEG); MARIJUANA POS (NEG); OPIATES NEG (NEG); TRICYCLIC ANTIDEPRESSANTS POS (NEG); U METHADONE NEG (NEG)
== END 2017-04-30 12:20 | DRG 885 ==
LOC: P2S 17:08
PROVIDERS: Psychiatry & Neurology Psychiatry
PROC: HZ2ZZZZ Detoxification Services for Substance Abuse Treatment (ICD-10-PCS; principal; 2017-04-23)
DX: F33.1 Major depressive disorder, recurrent, moderate (principal); F10.239 Alcohol dependence with withdrawal, unspecified; F12.10 Cannabis abuse, uncomplicated; F14.10 Cocaine abuse, uncomplicated; E66.9 Obesity, unspecified; G89.29 Other chronic pain; F17.200 Nicotine dependence, unspecified, uncomplicated; Z68.21 Body mass index [BMI] 21.0-21.9, adult
CPT/HCPCS: 80053; 80307; 81003; 85025; 86592